=== PATIENT | female | born 1990 ===

== ENCOUNTER 2016-12-14 08:27 | Day surgery (SDC) | payer OTHER ==
[2016-12-14 08:48] VITALS: BMI 24.6
[2016-12-14 09:27] VITALS: RESP 18
[2016-12-14] MEDS ORDERED: Lactated Ringer's 1,000 ML IV ONE (09:30)
[2016-12-14] MEDS ORDERED: Strong Iodine Topical Sol. 5%-10% ONE (10:58)
--- NOTE | 2016-12-14 10:58 | CP.SDSHP ---
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 Evaluated Today:Candidate for Anesthesia & Procedure: Yes - Date & Time Date: 12/14/16 Time: 10:58 Short Stay Discharge - Short Stay Discharge Admitting Diagnosis/Reason for Visit: LEEP PROCEDURE Disposition: HOME/ ROUTINE Referrals: Evelyne Moreno MD [Primary Care Provider] - Additional Instructions (Diet, Activity): F/U at the vet assistant clinic at the [facility] in 2 weeks. Pelvic rest for 2 weeks OTC Meds for pain control. Progress Note/Discharge Note with Instructions: 26yo s/p uncomplicated LEEP cone biopsy today for severe cervical dysplasia. Pt would be d/c home and f/u in 2 weeks. No sexual activity for 2 weeks. OTC pain meds. F/U at the ER or [facility] clinic in the event of cervical bleeding.
[2016-12-14] MEDS ORDERED: Ferric Subsulfate Sol(60 mL) ONE (10:59)
--- NOTE | 2016-12-14 12:14 | PCM.SURG1 ---
Surgeon's Initial Post Op Note - Surgeon's Notes Surgeon: Dr Mcfarland Wood Science Professor: None Type of Anesthesia: General Endo Anesthesia Administered By: Dr Masters Pre-Operative Diagnosis: Severe Cervical dysplasia Operative Findings: Normal sized anteverted uterus, some lugols free areas on the anterior lip of the cervix but within the transformation zone. The entire squamocolumnar junction was visualized. LEEP cone biopsy performed using [employer] cone excissor medium sized. EBL-10mls. IVF- 400mls. Urine output- 50mls Post-Operative Diagnosis: Same as preop diagnosis Operation Performed: LEEP cone biopsy Specimen/Specimens Removed: Cervical tissure for histopathology Estimated Blood Loss: EBL {In ML}: 10 Blood Products Given: N/A Post-Op Condition: Good Date of Surgery/Procedure: 12/14/16 Time of Surgery/Procedure: 12:15
[2016-12-14] MEDS ORDERED: Lactated Ringer's 1,000 ML IV SCH (12:37)
[2016-12-14] MEDS ORDERED: HYDROmorphone 0.5 mg/0.5 ml ISec IVP PRN (12:38)
--- NOTE | 2016-12-14 13:50 | OP ---
PROCEDURE DATE: 12/14/2016 PREOPERATIVE DIAGNOSIS: A 26-year-old with severe cervical dysplasia. POSTOPERATIVE DIAGNOSIS: A 26-year-old with severe cervical dysplasia. PROCEDURE DONE: LEEP cone biopsy using [employer] Cone Excisor. SURGEON: Dr. Mcfarland TYPE OF ANESTHESIA: General endotracheal. ANESTHESIA ADMINISTERED BY: Dr. Masters OPERATIVE FINDINGS: Normal sized anteverted uterus with some Lugol's free areas on the anterior lip of the cervix, but within the transformation zone. The entire squamocolumnar junction was visualized. INTRAVENOUS FLUID INTAKE: About 400 mL. URINE OUTPUT: 50 mL of clear urine. ESTIMATED BLOOD LOSS: About 10 mL. DESCRIPTION OF PROCEDURE: After obtaining informed consent, the patient was sent to the OR with IV running. The patient was sent to the OR and sat on the OR table. After adequate general anesthesia, the patient was placed in a dorsal lithotomy position. The patient was then prepped and draped in the usual sterile fashion. The urinary bladder was drained of clear urine of about 50 mL. Using the [place] speculum, the cervix was exposed and then treated with Lugol's iodine. Using a medium sized [employer] Cone Excisor, a circumferential cervical tissue was obtained. The tissue obtained was sent for histopathological evaluation. The crater left after the procedure was treated and cauterized with ball Bovie device. Monsel solution was applied to all the raw surfaces until adequate hemostasis was encountered. Once the procedure was completed, all instruments were taken out of the vagina and the patient was replaced in the regular supine position. The patient was then sent to the recovery room awake and in stable condition. All counts of instruments and gauze used were correct x 3. Jacques Mcfarland MD cc: [id number] TT: 12/14/2016 13:49:00 en MTDD
[2016-12-14 15:21] VITALS: BP 87/55; PULSE 60; TEMP 97.7; O2SAT 100
== END 2016-12-14 15:50 | disposition home or self-care (01) ==
LOC: H.OPSURG 08:27
PROVIDERS: ATTEND Obstetrics & Gynecology
DX: N87.9 Dysplasia of cervix uteri, unspecified (principal); J45.909 Unspecified asthma, uncomplicated; E03.9 Hypothyroidism, unspecified; G40.909 Epilepsy, unspecified, not intractable, without status epilepticus

== ENCOUNTER 2017-02-01 17:47 | Emergency (ER) | payer OTHER ==
[2017-02-01 17:48] VITALS: BMI 24.6
[2017-02-01 17:56] VITALS: BP 119/44; PULSE 76; RESP 18; TEMP 97.1; O2SAT 100
--- NOTE | 2017-02-01 18:22 | ED PDOC ---
HPI: Female Pain Time Seen by Provider: 02/01/17 17:53 Chief Complaint (Nursing): Female Genitourinary Chief Complaint (Provider): Back pain History Per: Patient Additional Complaint(s): Patient is a 26 yo female, PMH of hypothyroidism and asthma, presents to ED with complaints of b/l flank pain, associated with nausea. No fever or chills, no vomiting. Pts LMP was 01/01; however, she took a test today and preg was (-). Pt denies any burning on urination or blood in the urine. Past Medical History Reviewed: Nursing Documentation, Vital Signs Vital Signs: Last Vital Signs Temp 97.1 F L 02/01/17 17:52 Pulse 76 02/01/17 17:52 Resp 18 02/01/17 17:52 BP 119/44 L 02/01/17 17:52 Pulse Ox 100 02/01/17 17:52 - Medical History PMH: Asthma, Hypothyroidism, Seizures (pediatric febrile seizures) Denies: Depression, Chronic Kidney Disease - Surgical History Surgical History: - Family History Family History: States: Unknown Family Hx - Living Arrangements Living Arrangements: With Family - Social History Current smoker - smoking cessation education provided: No Alcohol: Social Drugs: Denies - Immunization History Hx Tetanus Toxoid Vaccination: Yes Hx Influenza Vaccination: No Hx Pneumococcal Vaccination: No - Home Medications Home Medications: Ambulatory Orders Medication Instructions Recorded Levothyroxine [Synthroid] 100 mcg PO DAILY 07/16/16 - Allergies Allergies/Adverse Reactions: Allergies Allergy/AdvReac Type Severity Reaction Status Date / Time No Known Allergies Allergy Verified 12/14/16 08:46 Review of Systems ROS Statement: Except As Marked, All Systems Reviewed And Found Negative Gastrointestinal: Positive for: Nausea, Abdominal Pain Physical Exam - Reviewed Nursing Documentation Reviewed: Yes Vital Signs Reviewed: Yes - Physical Exam Appears: Positive for: Well, Non-toxic, No Acute Distress Head Exam: Positive for: ATRAUMATIC, NORMAL INSPECTION, NORMOCEPHALIC Skin: Positive for: Normal Color, Warm, DRY Eye Exam: Positive for: EOMI, Normal appearance, PERRL ENT: Positive for: Normal ENT Inspection Neck: Positive for: Normal, Painless ROM Cardiovascular/Chest: Positive for: Regular Rate, Rhythm Respiratory: Positive for: CNT, Normal Breath Sounds Gastrointestinal/Abdominal: Positive for: Bowel Sounds, Soft, Tenderness (flank tenderness bilaterally) Back: Positive for: Normal Inspection, L CVA Tenderness, R CVA Tenderness Extremity: Positive for: Normal ROM Neurologic/Psych: Positive for: Alert, Oriented - Laboratory Results Result Diagrams: 02/01/17 19:05 - ECG O2 Sat by Pulse Oximetry: 100 Medical Decision Making Medical Decision Making: IV access established and treatment initiated with IVF, Toradol and Zofran Diagnostics ordered UA resulted WNL, no signs of UTI CT scan ordered to r/o stones. Case endorsed to SONA Mandujano at 20:00 pending diagnostic review and re-eval Disposition - Clinical Impression Clinical Impression: Flank pain - Patient ED Disposition Is Patient to be Admitted: Transfer of Care ([facility]) - Disposition Disposition: Transfer of Care ([facility]) Disposition Time: 19:52 Condition: STABLE - POA Present On Arrival: None
[2017-02-01] MEDS ORDERED: Sodium Chloride 0.9% 1,000 ML IV STA (18:24)
[2017-02-01 19:21] LABS: ALB/GLOB RATIO 1.3 (1.0-2.1); ALBUMIN 4.6 g/dL (3.5-5.0); ALT/SGPT 38 U/L (9-52); AMYLASE 92 U/L (30-110); AST/SGOT 22 U/L (14-36); BLOOD UREA NITROGEN 12 mg/dl (7-17); CALCIUM 9.3 mg/dL (8.4-10.2); GFR AFRICAN-AMERICAN > 60; GFR NON-AFRICAN AMERICAN > 60; LIPASE 79 U/L (23-300)
[2017-02-01 19:22] LABS: SQUAMOUS EPITHIAL 3 /hpf (0-5); URINE BILIRUBIN NEGATIVE (NEGATIVE); URINE BLOOD NEGATIVE (NEGATIVE); URINE CLARITY CLEAR (Clear); URINE COLOR YELLOW (YELLOW); URINE GLUCOSE (UA) NEG (Normal); URINE LEUKOCYTE ESTERASE NEG Leu/uL (Negative); URINE NITRATE NEGATIVE (NEGATIVE); URINE PROTEIN NEGATIVE (NEGATIVE); URINE UROBILINOGEN 0.2-1.0 mg/dL (0.2-1.0)
[2017-02-01 19:43] LABS: BASO % 0.7 % (0.0-2.0); EOS # 0.2 K/uL (0.0-0.7); EOS % 2.8 % (0.0-4.0); HEMOGLOBIN 11.3 g/dL (12.0-16.0); LYMPH # 2.6 K/uL (1.0-4.3); LYMPH % 35.1 % (20.0-40.0); MEAN CELL VOLUME 83.5 fl (81.0-99.0); MEAN CORPUSCULAR HEMOGLOBIN 27.7 pg (27.0-31.0); MEAN CORPUSCULAR HGB CONC 33.2 g/dL (33.0-37.0); MEAN PLATELET VOLUME 9.3 fl (7.2-11.7); MONO # 0.5 K/uL (0.0-0.8); MONO % 7.1 % (0.0-10.0); NEUT # 4.1 K/uL (1.8-7.0); NEUT % 54.3 % (50.0-75.0); RBC 4.06 Mil/uL (3.80-5.20); RED CELL DISTRIBUTION WIDTH 13.2 % (11.5-14.5); WHITE BLOOD COUNT 7.5 K/uL (4.8-10.8)
--- NOTE | 2017-02-01 20:57 | CT ---
EXAM: CT Abdomen and Pelvis Without Intravenous Contrast CLINICAL HISTORY: 26 years old, female; Pain; Abdominal pain; Flank; Other: Bilat. Flank pain; Prior surgery; Surgery date: 6+ months; Surgery type: Umbil. Hernia; Additional info: R/O renal stone TECHNIQUE: Axial computed tomography images of the abdomen and pelvis without intravenous contrast. This CT exam was performed using one or more of the following dose reduction techniques: automated exposure control, adjustment of the mA and/or kV according to patient size, and/or use of iterative reconstruction technique. Coronal and sagittal reformatted images were created and reviewed. COMPARISON: No relevant prior studies available. FINDINGS: Lower thorax: No acute findings. ABDOMEN: Liver: Unremarkable. Gallbladder and bile ducts: No calcified stones. No ductal dilation. Pancreas: Unremarkable. No ductal dilation. Spleen: No splenomegaly. Adrenals: No mass. Kidneys and ureters: No renal calculi. No hydronephrosis. Stomach and bowel: No definite mural thickening. No obstruction. Appendix: No findings to suggest acute appendicitis. PELVIS: Bladder: Unremarkable. No stones. Reproductive: Unremarkable as visualized. ABDOMEN and PELVIS: Intraperitoneal space: No significant fluid collection. No free air. Bones/joints: No acute fracture. Soft tissues: Unremarkable. Vasculature: Unremarkable. No aneurysm. Lymph nodes: No pathologically enlarged lymph nodes. IMPRESSION: 1. No CT evidence of urolithiasis. 2. Incidental/non-acute findings are described above.
--- NOTE | 2017-02-01 21:07 | ED PDOC ---
- Laboratory Results Result Diagrams: 02/01/17 19:05 02/01/17 19:05 - ECG O2 Sat by Pulse Oximetry: 100 - Progress ED Course And Treament: Case endorsed to casualty underwriter from [facility] pending CT EXAM: CT Abdomen and Pelvis Without Intravenous Contrast CLINICAL HISTORY: 26 years old, female; Pain; Abdominal pain; Flank; Other: Bilat. Flank pain; Prior surgery; Surgery date: 6+ months; Surgery type: Umbil. Hernia; Additional info: R/O renal stone TECHNIQUE: Axial computed tomography images of the abdomen and pelvis without intravenous contrast. This CT exam was performed using one or more of the following dose reduction techniques: automated exposure control, adjustment of the mA and/or kV according to patient size, and/ or use of iterative reconstruction technique. Coronal and sagittal reformatted images were created and reviewed. COMPARISON: No relevant prior studies available. FINDINGS: Lower thorax: No acute findings. ABDOMEN: Liver: Unremarkable. Gallbladder and bile ducts: No calcified stones. No ductal dilation. Pancreas: Unremarkable. No ductal dilation. Spleen: No splenomegaly. Adrenals: No mass. Kidneys and ureters: No renal calculi. No hydronephrosis. Stomach and bowel: No definite mural thickening. No obstruction. Appendix: No findings to suggest acute appendicitis. PELVIS: Bladder: Unremarkable. No stones. Reproductive: Unremarkable as visualized. ABDOMEN and PELVIS: Intraperitoneal space: No significant fluid collection. No free air. Bones/joints: No acute fracture. Soft tissues: Unremarkable. Vasculature: Unremarkable. No aneurysm. Lymph nodes: No pathologically enlarged lymph nodes. IMPRESSION: 1. No CT evidence of urolithiasis. 2. Incidental/non-acute findings are described above. on re-eval, patient states she is feeling better. Patient educated on findings, discharged with instructions to follow up PMD 2-3 days. Rx naproxen provided. Return to ED for worsening/concerning symptoms. Disposition - Clinical Impression Clinical Impression: Flank pain - POA Present On Arrival: None - Disposition Disposition: Routine/Home Disposition Time: 21:27 Condition: IMPROVED Prescriptions: Naproxen [Naprosyn] 500 mg PO Q12 PRN #20 tablet PRN Reason: Pain, Moderate (4-7) Instructions: Flank Pain (ED)
== END 2017-02-01 21:40 | disposition home or self-care (01) ==
LOC: H.ER 17:47
DX: R10.9 Unspecified abdominal pain (principal); E03.9 Hypothyroidism, unspecified; J45.909 Unspecified asthma, uncomplicated

== ENCOUNTER 2017-07-16 22:48 | Emergency (ER) | payer OTHER ==
[2017-07-16 22:48] VITALS: BMI 24.6
[2017-07-16 23:00] VITALS: BP 107/80; PULSE 74; RESP 18; TEMP 98.8; O2SAT 98
--- NOTE | 2017-07-16 23:23 | ED PDOC ---
HPI: CCC, URI, Sore Throat Time Seen by Provider: 07/16/17 23:07 Chief Complaint (Nursing): ENT Problem Chief Complaint (Provider): Epistaxis History Per: Patient Additional Complaint(s): 27 yo female, no PMH, presents to D with complaints of persistent nose bleeds from left nare for the last 2 weeks. Pt reports bleeding can occur at anytime and she usually blows large clots out of her nose. no bleeding at present time. Past Medical History Reviewed: Nursing Documentation, Vital Signs Vital Signs: Last Vital Signs Temp 98.8 F 07/16/17 22:56 Pulse 74 07/16/17 22:56 Resp 18 07/16/17 22:56 BP 107/80 07/16/17 22:56 Pulse Ox 98 07/16/17 23:38 - Medical History PMH: Asthma, Hypothyroidism, Seizures (pediatric febrile seizures) Denies: Depression, Chronic Kidney Disease - Surgical History Surgical History: No Surg Hx - Family History Family History: States: Unknown Family Hx - Living Arrangements Living Arrangements: With Family - Social History Current smoker - smoking cessation education provided: No Alcohol: None Drugs: Denies - Immunization History Hx Tetanus Toxoid Vaccination: Yes Hx Influenza Vaccination: No Hx Pneumococcal Vaccination: No - Home Medications Home Medications: Ambulatory Orders Medication Instructions Recorded Levothyroxine [Synthroid] 100 mcg PO DAILY 07/16/16 Naproxen [Naprosyn] 500 mg PO Q12 PRN #20 tablet 02/01/17 Glycerin/Hyaluronate Sodium [[place] 14 gm TP BID #1 gel..gram. 07/17/17 Gel] Humidifier 1 each HS #1 each 07/17/17 - Allergies Allergies/Adverse Reactions: Allergies Allergy/AdvReac Type Severity Reaction Status Date / Time No Known Allergies Allergy Verified 12/14/16 08:46 Review of Systems ROS Statement: Except As Marked, All Systems Reviewed And Found Negative ENT: Positive for: Nose Pain Physical Exam - Reviewed Nursing Documentation Reviewed: Yes Vital Signs Reviewed: Yes - Physical Exam Appears: Positive for: Well, Non-toxic, No Acute Distress Head Exam: Positive for: ATRAUMATIC, NORMAL INSPECTION, NORMOCEPHALIC Skin: Positive for: Normal Color, Warm, DRY Eye Exam: Positive for: EOMI, Normal appearance, PERRL ENT: Positive for: Normal ENT Inspection. Negative for: Nasal Congestion Neck: Positive for: Normal, Painless ROM Cardiovascular/Chest: Positive for: Regular Rate, Rhythm Respiratory: Positive for: CNT, Normal Breath Sounds Gastrointestinal/Abdominal: Positive for: Normal Exam, Bowel Sounds, Soft Back: Positive for: Normal Inspection Extremity: Positive for: Normal ROM Neurologic/Psych: Positive for: Alert, Oriented - Laboratory Results Result Diagrams: 07/16/17 23:45 07/16/17 23:45 - ECG O2 Sat by Pulse Oximetry: 98 Medical Decision Making Medical Decision Making: Labs resulted and reviewed with pt who demonstrated full understanding Supportive care measures discussed Disposition - Clinical Impression Clinical Impression: Epistaxis, Anemia - Patient ED Disposition Is Patient to be Admitted: No - Disposition Disposition: Routine/Home Disposition Time: 20:59 Condition: STABLE Prescriptions: Glycerin/Hyaluronate Sodium [[place] Gel] 14 gm TP BID #1 gel..gram. Humidifier 1 each HS #1 each Instructions: Nosebleed (ED), Anemia (ED) Forms: [employer] ([place])
[2017-07-17 00:13] LABS: BASO # 0.1 K/uL (0.0-0.2); BASO % 0.9 % (0.0-2.0); EOS # 0.2 K/uL (0.0-0.7); EOS % 2.4 % (0.0-4.0); HEMOGLOBIN 10.3 g/dL (12.0-16.0); LYMPH # 3.1 K/uL (1.0-4.3); MEAN CELL VOLUME 84.4 fl (81.0-99.0); MEAN CORPUSCULAR HEMOGLOBIN 27.6 pg (27.0-31.0); MEAN CORPUSCULAR HGB CONC 32.7 g/dL (33.0-37.0); MEAN PLATELET VOLUME 8.6 fl (7.2-11.7); MONO # 0.4 K/uL (0.0-0.8); MONO % 5.4 % (0.0-10.0); NEUT # 4.3 K/uL (1.8-7.0); NEUT % 53.3 % (50.0-75.0); RBC 3.73 Mil/uL (3.80-5.20); RED CELL DISTRIBUTION WIDTH 13.2 % (11.5-14.5); WHITE BLOOD COUNT 8.1 K/uL (4.8-10.8)
[2017-07-17 00:23] LABS: ALB/GLOB RATIO 1.2 (1.0-2.1); ALBUMIN 4.2 g/dL (3.5-5.0); ALT/SGPT 29 U/L (9-52); AST/SGOT 18 U/L (14-36); BLOOD UREA NITROGEN 12 mg/dl (7-17); CALCIUM 9.1 mg/dL (8.4-10.2); GFR AFRICAN-AMERICAN > 60; GFR NON-AFRICAN AMERICAN > 60
[2017-07-17 00:37] LABS: INR 1.1 (0.9-1.2); PARTIAL THROMBOPLASTIN TIME 36.1 Seconds (25.6-37.1); PROTHROMBIN TIME 11.9 Seconds (9.8-13.1)
== END 2017-07-17 01:05 | disposition home or self-care (01) ==
LOC: H.ER 22:48
DX: R04.0 Epistaxis (principal); D64.9 Anemia, unspecified; E03.9 Hypothyroidism, unspecified; J45.909 Unspecified asthma, uncomplicated

== ENCOUNTER 2018-01-19 09:16 | Emergency (ER) | payer OTHER ==
[2018-01-19 09:22] VITALS: O2SAT 100; BMI 21.4
--- NOTE | 2018-01-19 09:55 | ED PDOC ---
HPI: Female Pain Time Seen by Provider: 01/19/18 09:24 Chief Complaint (Nursing): Female Genitourinary Chief Complaint (Provider): Vaginal bleeding History Per: Patient History/Exam Limitations: no limitations Onset/Duration Of Symptoms: Days (x2) Current Symptoms Are (Timing): Still Present Associated Symptoms: Other (mild abdominal pain). denies: Fever, Chills, Back Pain Additional Complaint(s): Salima Meza is a 27 year old female, with a past medical history of endometriosis, who present to the emergency department for evaluation of vaginal bleeding onset for x2 days. Patient was seen at [facility] yesterday for the same symptoms, beta was 14 and ultrasound showed no IUP. Patient states she made an appointment with [facility]. She reports a mild abdominal pain but denies any fever, chills, back pain or other medical complaints. Patient is A0, LMP December 03. PMD: Evelyne Moreno Abnormal Vaginal Bleeding: Yes Last Menstral Period: December 03 : 3 Para: 2 Miscarriage: 0 Past Medical History Reviewed: Historical Data, Nursing Documentation, Vital Signs Vital Signs: Last Vital Signs Temp 98.4 F 01/19/18 09:21 Pulse 65 01/19/18 09:21 Resp 16 01/19/18 09:21 BP 99/71 L 01/19/18 09:21 Pulse Ox 100 01/19/18 09:21 - Medical History PMH: Asthma, Hypothyroidism, Seizures (pediatric febrile seizures) Denies: Depression, Chronic Kidney Disease Other PMH: endometriosis - Surgical History Surgical History: No Surg Hx - Family History Family History: States: Unknown Family Hx - Immunization History Hx Tetanus Toxoid Vaccination: Yes Hx Influenza Vaccination: No Hx Pneumococcal Vaccination: No - Home Medications Home Medications: Ambulatory Orders Medication Instructions Recorded No Known Home Med 01/18/18 - Allergies Allergies/Adverse Reactions: Allergies Allergy/AdvReac Type Severity Reaction Status Date / Time No Known Allergies Allergy Verified 01/18/18 15:25 Review of Systems ROS Statement: Except As Marked, All Systems Reviewed And Found Negative Constitutional: Negative for: Fever, Chills Gastrointestinal: Positive for: Abdominal Pain (mild) Genitourinary Female: Positive for: Vaginal Bleeding Musculoskeletal: Negative for: Back Pain Physical Exam - Reviewed Nursing Documentation Reviewed: Yes Vital Signs Reviewed: Yes - Physical Exam Appears: Positive for: Non-toxic, No Acute Distress Head Exam: Positive for: ATRAUMATIC, NORMAL INSPECTION, NORMOCEPHALIC Skin: Positive for: Normal Color, Warm, Dry Eye Exam: Positive for: Normal appearance, EOMI, PERRL Neck: Positive for: Painless ROM, Supple Cardiovascular/Chest: Positive for: Regular Rate, Rhythm. Negative for: Murmur Respiratory: Positive for: Normal Breath Sounds. Negative for: Respiratory Distress Gastrointestinal/Abdominal: Positive for: Normal Exam, Soft. Negative for: Tenderness, Guarding, Rebound Back: Positive for: Normal Inspection. Negative for: L CVA Tenderness, R CVA Tenderness, Vertebral Tenderness Extremity: Positive for: Normal ROM (upper and lower extremities). Negative for : Deformity, Swelling Neurologic/Psych: Positive for: Alert, Oriented. Negative for: Motor/Sensory Deficits - ECG O2 Sat by Pulse Oximetry: 100 (RA) Pulse Ox Interpretation: Normal Medical Decision Making Medical Decision Making: Time: 09:24 Initial Impression: vaginal bleeding in Initial Plan: --Beta-HCG, Quantitative --Urine dipstick --Reevaluation T&S reviewed from previous visit. ----- Scribe Attestation: Documented by Travis Teixeira, acting as a scribe for Sheridan Sloan MD. Provider Scribe Attestation: All medical record entries made by the Scribe were at my direction and personally dictated by me. I have reviewed the chart and agree that the record accurately reflects my personal performance of the history, physical exam, medical decision making, and the department course for this patient. I have also personally directed, reviewed, and agree with the discharge instructions and disposition. Disposition - Clinical Impression Clinical Impression: Spontaneous miscarriage - Disposition Referrals: [facility] [Outside] Disposition: Routine/Home Disposition Time: 10:55 Condition: STABLE Instructions: Miscarriage Forms: [employer] ([place]andan)
[2018-01-19 11:27] VITALS: BP 116/68; PULSE 75; RESP 14; TEMP 98
== END 2018-01-19 11:28 | disposition home or self-care (01) ==
LOC: H.ER 09:16
DX: O03.9 Complete or unspecified spontaneous abortion without complication (principal); E03.9 Hypothyroidism, unspecified

== ENCOUNTER 2018-11-16 19:07 | Emergency (ER) | payer OTHER ==
[2018-11-16 19:07] VITALS: BMI 21.4
[2018-11-16 21:14] VITALS: O2SAT 99
--- NOTE | 2018-11-16 21:38 | ED PDOC ---
HPI: Influenza Time Seen by Provider: 11/16/18 20:30 Chief Complaint: Flu-like Symptoms Chief Complaint (Provider): Flu-like Symptoms History Per: Patient Exam Limitations: no limitations Onset/Duration Of Symptoms: Days (x3) Additional complaint(s):: 28 year old female presents to the ED for evaluation of flu-like symptoms including cough and body aches or the past three days. Patient notes her two year old at home now has a fever, but she does not. Additionally denies sore throat and vomiting. Took Dayquil earlier with some relief. PMD: none provided Past Medical History Reviewed: Historical Data, Nursing Documentation, Vital Signs Vital Signs: Last Vital Signs Temp 98.1 F 11/16/18 21:10 Pulse 83 11/16/18 21:10 Resp 18 11/16/18 21:10 BP 106/68 11/16/18 21:10 Pulse Ox 99 11/16/18 21:10 Primary Care Provider: Doctor,Murray - Medical History PMH: Asthma, Hypothyroidism, Seizures (pediatric febrile seizures) Denies: Depression, Chronic Kidney Disease - Surgical History Surgical History: No Surg Hx - Family History Family History: States: Unknown Family Hx - Immunization History Hx Tetanus Toxoid Vaccination: Yes Hx Influenza Vaccination: No Hx Pneumococcal Vaccination: No - Home Medications Home Medications: Ambulatory Orders Medication Instructions Recorded Ibuprofen [Motrin] 600 mg PO Q8 PRN #21 tab 11/16/18 Pseudoephedrine [Sudafed Tab] 60 mg PO Q6 PRN #24 tab 11/16/18 - Allergies Allergies/Adverse Reactions: Allergies Allergy/AdvReac Type Severity Reaction Status Date / Time No Known Allergies Allergy Verified 11/16/18 21:10 Review of Systems ROS Statement: Except As Marked, All Systems Reviewed And Found Negative Constitutional: Positive for: Other (body aches). Negative for: Fever ENT: Negative for: Throat Pain Respiratory: Positive for: Cough Gastrointestinal: Negative for: Vomiting Physical Exam - Reviewed Nursing Documentation Reviewed: Yes Vital Signs Reviewed: Yes - Physical Exam Appears: Positive for: No Acute Distress Head Exam: Positive for: ATRAUMATIC, NORMOCEPHALIC Skin: Positive for: Normal Color, Warm Eye Exam: Positive for: Normal appearance ENT: Positive for: Normal ENT Inspection. Negative for: Pharyngeal Erythema, Tonsillar Exudate, Tonsillar Swelling Neck: Positive for: Normal, Painless ROM, Supple Cardiovascular/Chest: Positive for: Regular Rate, Rhythm Respiratory: Positive for: Normal Breath Sounds. Negative for: Respiratory Distress Gastrointestinal/Abdominal: Positive for: Normal Exam, Soft. Negative for: Tenderness Neurological/Psych: Positive for: Awake, Alert, Oriented (x3). Negative for: Motor/Sensory Deficits Medical Decision Making Medical Decision Making: Time: 2135 Initial Impression: flu-like symptoms Initial Plan: --Influenza A B swab ScribeAttestation: Documented bySoumya White acting as a scribe for Juan Rendon PA-C. Provider ScribeAttestation: All medical record entries made by the Scribe were at my direction and personally dictated by me. I have reviewed the chart and agree that the record accurately reflects my personal performance of the history, physical exam, medical decision making, and the department course for this patient. I have also personally directed, reviewed, and agree with the discharge instructions and disposition. - ECG O2 Sat by Pulse Oximetry: 99 (RA) Pulse Ox Interpretation: Normal - Progress ED Course And Treament: flu a/b negative Patient offered tamiflu does not want rx motrin 600mg x 1 dose in ED Disposition - Clinical Impression Clinical Impression: Influenza-like illness - Patient ED Disposition Is Patient to be Admitted: No - Disposition Disposition: Routine/Home Disposition Time: 22:39 Condition: FAIR Prescriptions: Ibuprofen [Motrin] 600 mg PO Q8 PRN #21 tab PRN Reason: Pain, Moderate (4-7) Pseudoephedrine [Sudafed Tab] 60 mg PO Q6 PRN #24 tab PRN Reason: Nasal Congestion Instructions: Viral Syndrome (DC) Forms: [facility] ED School/Work Excuse
[2018-11-16 23:09] VITALS: BP 121/73; PULSE 78; RESP 16; TEMP 98.3
== END 2018-11-16 23:09 | disposition home or self-care (01) ==
LOC: H.ER 19:07
DX: J11.1 Influenza due to unidentified influenza virus with other respiratory manifestations (principal); J45.909 Unspecified asthma, uncomplicated; E03.9 Hypothyroidism, unspecified